=== PATIENT | male | born 1995 | race Two or more races ===

== ENCOUNTER 2023-06-08 11:22 | Outpatient (AMB) | payer OTHER, SELFPAY ==
--- NOTE | 2023-06-08 13:02 | AM.OFFWIN_ITS ---
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 PFSH Social History Patient Tobacco Use Status: Never used Tobacco Review of Systems Const Denies chills, Denies fever(s), Denies frequent falls, Reports headache(s) and Reports malaise Eyes Denies blurry vision ENT Reports dizziness, Denies ear discharge, Denies otalgia, Reports headache(s), Denies neck pain, Denies sinus pain, Denies sinus pressure, Reports sore throat and Denies throat swelling Card Denies chest pain and Denies dyspnea Resp Reports chest congestion, Denies cough and Denies dyspnea GI Denies abdominal pain, Denies diarrhea, Denies nausea and Denies vomiting Musc Denies myalgias and Denies neck pain Neuro Denies confusion, Reports dizziness, Denies frequent falls and Reports headache(s) Psych Denies confusion Aller/Immun Denies throat swelling Physical Exam Vital Signs: Last Vital Signs Temp 96.8 F 06/08/23 13:08 Pulse 73 06/08/23 13:08 BP 122/78 06/08/23 13:08 Pulse Ox 96 06/08/23 13:08 Oxygen Delivery Method Room Air 06/08/23 13:08 General: Non-toxic, NAD. Speaking full sentences. Skin: Warm dry throughout Eye: PERRL, EOMI. No nystagmus HENT: Airway patent. Uvula midline. No pharyngeal erythema or edema. No INTERPRETIVE PROGRAM COORDINATOR. Bilateral canals clear. TM non-erythematous, non-bulging. No TM perforation or hemotympanum noted. Respiratory: CTA bilaterally. No wheezes, rales or rhonchi Cardiac: RRR. No murmur MSK: No midline tenderness. Full ROM extremities. Neurology: A/O x 3. CN 2-12 grossly intact. Finger to nose tracing equal. Negative pronator drift. + maintain balance with rhomberg. No aphasia or facial droop. Equal strength. Gait without abnormality Psych: Good mood and affect Const General: No confusion Orientation/consciousness: No confusion Neuro General: No confusion Results AMB Rapid Strep AMB Rapid Strep Negative Last Edit by Brynn Schumacher CMA on 06/08/23 13:22 Results Reviewed Results Reviewed: Laboratory Last Values Strep Scn [facility] Negative 06/08/23 13:20 Assessment & Plan Assessment & Plan (1) Pharyngitis: Code(s): J02.9 - Acute pharyngitis, unspecified Qualifiers: Pharyngitis/tonsillitis etiology: unspecified etiology Qualified Code(s): J02.9 - Acute pharyngitis, unspecified Plan: strep negative (2) Headache: Code(s): R51.9 - Headache, unspecified Qualifiers: Headache chronicity pattern: acute headache Headache type: unspecified Intractability: not intractable Qualified Code(s): R51.9 - Headache, unspecified Plan: Patient seen and evaluated. No neurological deficit on exam Lungs CTAVital stable Strep negative Pt was running in and out of rain at work the other day and thinks he is coming down with cold No sign of bacterial sinusitis Told to d/c OTC Portuguese meds Discussed increasing fluid hydration and rest Tylenol prn pain RSV/COVID/flu ordered Discussed in any continual/change in dizziness, worsening headache, faint feel ing, CP or SOB go to ED Patient gave verbal understanding and had no additional questions or concerns at time of discharge All questions answered Orders: Orders AMB Rapid Strep Screen 06/08/23 Z13.9 - Encounter for screening, unspecified SARS-CoV2/FLU/RSV 06/08/23 J02.9 - Acute pharyngitis, unspecified Coding Level of Care Code Est Pt Level 3 (15315) Diagnoses Pharyngitis, unspecified etiology J02.9 Pharyngitis/tonsillitis etiology: unspecified etiology Acute nonintractable headache, unspecified headache type R51.9 Headache chronicity pattern: acute headache Headache type: unspecified Intractability: not intractable
[2023-06-08 13:08] VITALS: BP 122/78; PULSE 73; TEMP 36; O2SAT 96
== END 2023-06-08 13:32 | disposition home or self-care (01) ==
PROVIDERS: Visit Provider Physician Assistant
DX: J02.9 Acute pharyngitis, unspecified (principal); R51.9 Headache, unspecified
CPT/HCPCS: 87880; 99213

== ENCOUNTER 2023-06-08 20:02 | Outpatient (REF) | payer OTHER, SELFPAY ==
[2023-06-08 20:44] LABS: Influenza A PCR NEGATIVE (Negative); Influenza B PCR NEGATIVE (Negative); Resp Syncy Virus RNA Qual PCR NEGATIVE (Negative); SARS COV2 PCR INHOUSE NEGATIVE (Negative)
== END 2023-06-08 20:03 | disposition home or self-care (01) ==
LOC: HO.HMGCLNP 20:02
PROVIDERS: Visit Provider Physician Assistant
DX: Z11.52 Encounter for screening for COVID-19 (principal); Z20.822 Contact with and (suspected) exposure to COVID-19; J02.9 Acute pharyngitis, unspecified
CPT/HCPCS: 0241U

== ENCOUNTER 2024-07-31 12:23 | Outpatient (REF) | payer BC, SELFPAY ==
[2024-07-31 18:23] LABS: Influenza A PCR POSITIVE (Negative); Influenza B PCR NEGATIVE (Negative); Resp Syncy Virus RNA Qual PCR NEGATIVE (Negative); SARS COV2 PCR INHOUSE NEGATIVE (Negative)
== END 2024-07-31 12:24 | disposition home or self-care (01) ==
LOC: HO.LNP 12:23
PROVIDERS: Visit Provider Physician Assistant
DX: J06.9 Acute upper respiratory infection, unspecified (principal)
CPT/HCPCS: 0241U

== ENCOUNTER 2024-07-31 12:23 | Outpatient (AMB) | payer BC, SELFPAY ==
[2024-07-31 13:03] VITALS: BP 114/78; PULSE 81; TEMP 37.1; O2SAT 97; BMI 35.9
--- NOTE | 2024-07-31 13:03 | AM.OFFWIN_ITS ---
Intake Vital Signs 07/31/24 13:03 Height 6 ft 2 in Weight 280 lb BMI 35.9 BP 114/78 Blood Pressure Location Rt brachial Position Sitting Pulse 81 Pulse Source Pulse Oximeter Temp 98.7 F Temp Source Oral Pulse Oximetry (%) 97 Oxygen Delivery Method Room Air Intake Visit Reasons: EP cold, cough, fever, headache, sore throat Intake Note: Patient here for fever, body aches, weakness, headache which started Tuesday. Patient Tobacco Use Status: Never used Tobacco Allergies No Known Allergies Allergy (Verified 07/31/24 13:17) Do you need a note to return to daycare/school/sports/work: Yes HPI HPI Comments History of Present Illness Details This is a 29-year-old male with no stated past medical history presenting for evaluation of fever, body aches, cough and sore throat that he has had since Tuesday. Patient states he has been taking both antibiotics and anti flu medication that he brought with him from [facility]. Patient has taken 4 doses of azithromycin. Patient is not taking any Tylenol or ibuprofen to his knowledge. Patient denies having any headaches, otalgia, chest pain or shortness of breath. [facility] Social History Patient Tobacco Use Status: Never used Tobacco Review of Systems Const All systems reviewed & are unremarkable except as noted in HPI and below Reports no additional complaints, Denies chills, Reports fatigue, Reports fever(s) and Denies headache(s) Eyes Reports no additional complaints ENT Reports no additional complaints, Denies otalgia, Denies headache(s) and Reports sore throat Card Denies dyspnea Resp Reports cough and Denies dyspnea GI Reports no additional complaints Reports no additional complaints Musc Reports no additional complaints Skin/Breast Reports system reviewed and no additional complaints, except as documented Neuro Reports no additional complaints and Denies headache(s) Psych Reports no additional complaints Endo Reports no additional complaints and Reports fatigue Rickey/Lymph Reports no additional complaints Aller/Immun Reports no additional complaints Physical Exam Vital Signs: Last Vital Signs Temp 98.7 F 07/31/24 13:03 Pulse 81 07/31/24 13:03 BP 114/78 07/31/24 13:03 Pulse Ox 97 07/31/24 13:03 Oxygen Delivery Method Room Air 07/31/24 13:03 BMI result Body Mass Index 35.9 Patient is afebrile. Const General: cooperative, healthy appearing, comfortable, no acute distress and well developed Nutritional Appearance: overweight Orientation/consciousness: patient oriented x3 Limitations: no limitations HEENT Head: Yes normal to inspection and Yes normocephalic Ears: hearing grossly normal bilaterally, external ears normal, TM's normal bilaterally and EAC's normal General nose exam: Normal external nose present Face and sinus: Yes normal facial exam and Yes sinuses nontender Mouth: Normal oral and palatal mucosa present and oropharynx normal Throat: Yes posterior oropharynx normal and No postnasal drainage Neck Lymphatic: no lymphadenopathy noted Resp Effort & Inspection: normal respiratory effort and able to speak in complete sentences Auscultation: clear to auscultation bilaterally Cardio Rate: regular rate Rhythm: regular rhythm Neuro General: patient oriented x3 Psych Appearance: grossly normal Mental Status: mental status grossly normal Insight: Good insight present (Psych) Judgement: Good judgement present (Psych) Assessment & Plan Assessment & Plan (1) Acute upper respiratory infection: Comment: SARS panel is ordered and results are pending. Lungs are clear to auscultation bilaterally and imaging is deferred. Code(s): J06.9 - Acute upper respiratory infection, unspecified Plan: Ibuprofen, Tylenol as needed for fever and body aches, Mucinex with increased clear fluids for cough. Orders: Orders SARS-CoV2/FLU/RSV Today J06.9 - Acute upper respiratory infection, unspecified Coding Level of Care Code Est Pt Level 3 (29380) Diagnoses Acute upper respiratory infection J06.9 Time Spent (min) 20
== END 2024-07-31 13:57 | disposition home or self-care (01) ==
PROVIDERS: Visit Provider Physician Assistant
DX: J06.9 Acute upper respiratory infection, unspecified (principal)